=== PATIENT | male | born 2000 | race Caucasian/White ===

== ENCOUNTER 2023-06-15 10:14 | Emergency (ER) | payer MEDICAID ==
[~2023-06-15] VITALS: Ht 193 cm; Wt 161.7 kg
[2023-06-15 10:29] VITALS: BP 148/92; PULSE 108; RESP 20; TEMP 99; O2SAT 97
[2023-06-15] MEDS ORDERED: AMOX-580 PO (11:03)
== END 2023-06-15 11:33 | disposition home or self-care (01) ==
LOC: ER 10:16
DX: J32.9 Chronic sinusitis, unspecified (principal); H66.92 Otitis media, unspecified, left ear
CPT/HCPCS: 99283

== ENCOUNTER 2023-06-17 03:15 | Emergency (ER) | payer MEDICAID ==
[~2023-06-17] VITALS: Ht 193 cm; Wt 113.6 kg
[~2023-06-17 03:15] MED LIST: AMOX-580 PO
[2023-06-17 03:17] VITALS: TEMP 98.1
[2023-06-17] MEDS: ondansetron 4mg rapidly disintigrating tab PO ONE (04:04)
[2023-06-17] MEDS: diphenhydrAMINE 25mg capsule PO ONE (04:05)
[2023-06-17] MEDS: dexamethasone sod phosphate 10mg/ml inj IM STA (04:05)
[2023-06-17] MEDS: normal saline 1000ML IV soln IVB ONE (04:50)
[2023-06-17] MEDS: LORazepam 2 mg/ml vial IV ONE (04:59)
[2023-06-17] MEDS: ondansetron/PF 4mg/2ml inj IV ONE (04:59)
[2023-06-17 05:07] LABS: BILIRUBIN,URINE NEGATIVE (Neg); CLARITY,URINE CLEAR (Clear); COLOR,URINE YELLOW (Yellow); GLUCOSE, URINE NEGATIVE (Neg); KETONES,URINE NEGATIVE (Neg); LEUKOCYTE ESTERASE ,URINE NEGATIVE (Neg); NITRITES, URINE NEGATIVE (Neg); OCCULT BLOOD,URINE NEGATIVE (Neg); PH,URINE 7.5 (4.8-8.0); PROTEIN,URINE NEGATIVE (Neg)
[2023-06-17 05:09] LABS: UA COLLECTION TYPE CLN CATCH MIDSTREAM
[2023-06-17 05:12] LABS: BASOPHILS # (AUTO) 0.2 X10'3 (0-0.2); BASOPHILS % (AUTO) 1.4 % (0-1); EOSINOPHILS # (AUTO) 0.3 X10'3 (0-0.9); EOSINOPHILS % (AUTO) 2.3 % (0-6); HEMATOCRIT 42.3 % (42.0-52.0); HEMOGLOBIN 14.8 g/dl (14.0-17.9); LYMPHOCYTES # (AUTO) 2.1 X10'3 (1.1-4.8); LYMPHOCYTES % (AUTO) 17.8 % (21-51); MEAN CORPUSCULAR HEMOGLOBIN 30.7 PG (27.0-31.0); MEAN CORPUSCULAR HGB CONC 35.1 g/dL (33.0-36.5); MEAN CORPUSCULAR VOLUME 87.4 FL (78-98); MEAN PLATELET VOLUME 7.5 FL (7.4-10.4); MONOCYTES # (AUTO) 0.4 X10'3 (0-0.9); MONOCYTES % (AUTO) 3.2 % (2-12); NEUTROPHILS # (AUTO) 8.9 X10'3 (1.8-7.7); NEUTROPHILS % (AUTO) 75.3 % (42-75); PLATELET COUNT 353 X10'3 (140-440); RED BLOOD COUNT 4.84 X10'6 (4.70-6.10); RED CELL DISTRIBUTION WIDTH 12.8 % (11.5-14.5); WHITE BLOOD COUNT 11.9 X10'3 (4.5-11.0)
[2023-06-17] MEDS ORDERED: PRED20TA PO (05:29)
[2023-06-17] MEDS ORDERED: ONDA4TAB12 PO (05:29)
[2023-06-17] MEDS ORDERED: DIPH25CA83 PO (05:29)
[2023-06-17 05:39] VITALS: BP 123/72; PULSE 90; RESP 16; O2SAT 95
== END 2023-06-17 05:47 | disposition home or self-care (01) ==
LOC: ER 03:16
DX: K29.70 Gastritis, unspecified, without bleeding (principal); E86.0 Dehydration; T36.95XA Adverse effect of unspecified systemic antibiotic, initial encounter; Z79.2 Long term (current) use of antibiotics; Y92.89 Other specified places as the place of occurrence of the external cause
CPT/HCPCS: 36415; 81003; 83690; 85025; 96361; 96372; 96374; 96375; 99284; J1100; J2060; J2405; J7030; Q0163